=== PATIENT | male | born 1950 | race Caucasian/White ===

== ENCOUNTER 2018-04-14 08:15 | Outpatient (CLI) | payer MEDICARE, BC ==
[~2018-04-14] VITALS: Ht 175.3 cm; Wt 75.7 kg
[2018-04-14 09:11] LABS: TOTAL HEMOGLOBIN 16.4 G/dl (14.0-18.0)
[2018-04-14] MEDS ORDERED: albuterol 2.5 MG/3 ML nebule NEB ONE (09:25)
== END 2018-04-14 23:59 | disposition home or self-care (01) ==
LOC: RT 08:15
PROVIDERS: ATTEND Internal Medicine Pulmonary Disease
DX: J45.991 Cough variant asthma (principal); Z79.899 Other long term (current) drug therapy
CPT/HCPCS: 85018; 94010; 94727; 94729; J7030